=== PATIENT | male | born 1955 | race Caucasian/White ===

== ENCOUNTER 2025-07-06 10:10 | Outpatient (CLI) | payer MEDICARE, SELFPAY ==
--- NOTE | ~2025-07-06 | XR_ITS ---
EXAMINATION: XR knee LT min 4V DATE: 07/06/2025 11:08 INDICATION: Pain TECHNIQUE: Left knee were obtained. COMPARISON: None. FINDINGS: Severe osteoarthritic appearing degenerative changes of the medial compartment with milder degenerative changes in the lateral compartment and patellofemoral joint. No gross acute or aggressive bony or soft tissue process seen. IMPRESSION: 1. Advanced osteoarthritic changes especially involving the medial compartment. Reviewed, dictated and finalized at location A. ICATION SYSTEMS ENGINEER
--- NOTE | ~2025-07-06 | XR_ITS ---
EXAM/PROCEDURE: XR cervical spine 4-5V HISTORY: M54.2 - Cervicalgia; PT C/O CHRONIC PAIN COMPARISON: None available. TECHNIQUE: Cervical spine 3 view with flexion and extension FINDINGS: On flexion and extension no evidence of instability. No acute or aggressive bony or soft tissue process seen. Mild to moderate degenerative appearing changes involving disc spaces uncovertebral joints and pedicles noted. Prevertebral soft tissues within normal limits. IMPRESSION: Mild to moderately severe multilevel degenerative changes. Reviewed, dictated and finalized at location A. COVER MAKER
--- NOTE | ~2025-07-06 | XR_ITS ---
EXAMINATION: XR shoulder RT min 2V DATE: 07/06/2025 11:08 INDICATION: Pain TECHNIQUE: Right shoulder x-rays were obtained. COMPARISON: None. FINDINGS: Severe degenerative changes of the right shoulder consistent with advanced osteoarthritis; large spur along the inferior margin of the humeral measuring approximately 2.3 x 1.2 cm noted. Near complete obliteration of the glenohumeral joint space. 8mm ossification along the superior and anterior margin likely associated with calcific tendinitis involving the rotator cuff. No gross acute or aggressive bony or soft tissue process seen. IMPRESSION: 1. Severe degenerative changes of the right shoulder with no gross acute or aggressive bony or soft tissue process seen. Reviewed, dictated and finalized at location A. IC INFORMATION COORDINATOR IMPRESSION: 1. Severe degenerative changes of the right shoulder with no gross acute or agg ressive bony or soft tissue process seen.
[2025-07-06 11:56] LABS: Hematocrit 44.9 % (42.0-52.0); Hemoglobin 15.1 g/dL (14.0-18.0); Immature Granulocyte Percent A 0.4 % (0-0.5); Lymphocytes Absolute Auto 2.06 K/mm3 (0.9-3.2); Mean Corpuscular HGB Conc 33.6 g/dl (32-36); Mean Corpuscular Hemoglobin 32.0 pg (26-34); Mean Corpuscular Volume 95.1 fl (80-100); Nucleated Red Blood Cells Absolute Auto 0.000 K/mm3 (0.0-0.012); Nucleated Red Blood Cells Perc 0.0 % (0.0-0.2); Platelet Count Result 177 k/mm3 (150-375); Red Blood Count 4.72 M/mm3 (4.6-6.20); White Blood Count 7.6 K/mm3 (4.5-10.0)
[2025-07-06 12:02] LABS: Add Urine Microscopic? NO; Appearance Urine Clear (Clear); Glucose Urine UA Negative (Negative); Leukocyte Esterase Ur Negative LEU/UL (Negative); Nitrate Urine Negative (Negative); Specific Grav Ur 1.014 (1.001-1.035)
[2025-07-06 12:22] LABS: Alanine Aminotransferase 20 U/L (6-50); Albumin Level 4.4 g/dL (3.5-5.1); Alkaline Phosphatase 75 U/L (38-126); Anion Gap 5 mmol/L (4-12); Aspartate Amino Transferase 30 U/L (17-59); Bilirubin,Total 1.0 mg/dL (0.2-1.3); Blood Urea Nitrogen 16 mg/dL (9-20); Calcium 9.6 mg/dL (8.4-10.2); Carbon Dioxide 32 mmol/L (22-30); Chloride 101 mmol/L (98-107); Cholesterol 126 mg/dL (0-200); Estimated Glomerular Filt Rate > 60; Glucose 124 mg/dL (65-110); HDL Direct 49 mg/dL; Potassium 4.6 mmol/L (3.4-5.0); Sodium 138 mmol/L (137-145); Total Protein 7.6 g/dL (6.3-8.2); Triglycerides 66 mg/dL (<150)
[2025-07-06 12:40] LABS: Free T4 Free Thyroxine 1.41 ng/dL (0.78-2.19)
[2025-07-06 13:01] LABS: Prostate Specific Antigen 2.0 ng/mL (< OR = 4.0); Thyroid Stimulating Hormone 0.579 uIU/mL (0.465-4.680)
[2025-07-06 13:36] LABS: Vitamin B12 788.0 pg/mL (239-931)
[2025-07-06 19:39] LABS: Hemoglobin A1C 5.9 % (<5.7)
== END 2025-07-06 10:11 | disposition home or self-care (01) ==
PROVIDERS: PCP Internal Medicine; Visit Provider Internal Medicine
DX: R73.03 Prediabetes (principal); Z79.899 Other long term (current) drug therapy; R20.0 Anesthesia of skin; Z13.29 Encounter for screening for other suspected endocrine disorder; Z12.5 Encounter for screening for malignant neoplasm of prostate; E55.9 Vitamin D deficiency, unspecified; E78.2 Mixed hyperlipidemia; R25.1 Tremor, unspecified; E53.9 Vitamin B deficiency, unspecified; M50.30 Other cervical disc degeneration, unspecified cervical region; M19.011 Primary osteoarthritis, right shoulder; M17.12 Unilateral primary osteoarthritis, left knee
CPT/HCPCS: 36415; 72050; 73030; 73564; 80053; 80061; 81003; 82306; 82607; 82746; 83036; 84153; 84439; 84443; 85025; G0103